=== PATIENT | female | born 1980 | race Caucasian/White ===

== ENCOUNTER 2017-08-03 15:20 | Emergency (ER) | payer SELFPAY ==
[~2017-08-03 15:20] MED LIST: CYMB30CA PO; DICL50 PO; HYDR50CA PO; PROP20TA3 PO
[2017-08-03 15:21] VITALS: BP 131/76; PULSE 79; RESP 16; TEMP 98; O2SAT 99
--- NOTE | 2017-08-03 15:41 | PD ---
HPI Chief Complaint: Skin Problem Time Seen by Provider: 15:26 Travel History International Travel<30 days: No Contact w/Intl Traveler<30days: No Traveled to known affect area: No History of Present Illness HPI 36-year-old female with painful lesion to the right posterior scalp with pain radiating along the right upper scalp to the forehead. Patient also has several small lesions on the forehead and upper nose which she thought were "pimples". Patient thought she may have been bitten by a spider. She has had low-grade fevers over the past several days, and increased stress. Patient denies headache, sore throat, or other respiratory symptoms. She denies nausea , vomiting, cough, shortness of breath, or other symptoms. Pain is 8 out of 10 and worse with palpation. She is allergic to wasp it has no medication allergies. PFSH Past Medical History Blood Disorders: No Anxiety: Yes Depression: Yes Cancer: No Cardiovascular Problems: Yes Diminished Hearing: No Endocrine: No Genitourinary: No Headaches: Yes Immune Disorder: No Musculoskeletal: Yes (CHRONIC BACK PAIN) Psychiatric: No Respiratory: No Immunizations Current: Yes Migraines: Yes : 3 Miscarriage: 2 Dilation and Curettage (D&C): Yes (X 1) Past Surgical History AICD: No Gynecologic Surgery: Yes (DNC ) Joint Replacement: No Pacemaker: No Tonsillectomy: Yes Other Surgery: Yes (T & A AT AGE 19 YRS.) Social History Alcohol Use: No Tobacco Use: Yes Substance Use: Yes (H/O IV DRUG USER ) Allergies-Medications (Allergen,Severity, Reaction): Uncoded Allergies: WASPS (Allergy, Severe, ANAPHALACTIC SHOCK, 11/19/11) Reported Meds & Prescriptions Reported Meds & Active Scripts Active Voltaren (Diclofenac Sodium) 50 Mg Tabec 50 Mg PO BID PRN Reported Propranolol (Propranolol HCl) 20 Mg Tab 20 Mg PO BID Hydroxyzine Pamoate 50 Mg Cap 50 Mg PO TID Cymbalta (Duloxetine HCl) 30 Mg Cap 60 Mg PO BID Review of Systems Except as stated in HPI: all other systems reviewed are Neg General / Constitutional: Positive: Fever, Chills (Low-grade) Eyes: No: Diploplia, Blurred Vision, Photophobia, Drainage, Redness, Foreign Body Sensation, Pain, Tearing, Blind Spots, Visual changes, Blindness HENT: Positive: Other (See history of present illness), No: Headaches, Vertigo , Lightheadedness, Sore Throat, Rhinitis, Rhinorrhea, Congestion, Nosebleed, Neck Stiffness, Neck Pain, Masses, Dental Difficulties, Earache Cardiovascular: No: Chest Pain or Discomfort Respiratory: No: Shortness of Breath Gastrointestinal: No: Nausea, Vomiting, Diarrhea, Abdominal Pain Genitourinary: No: Dysuria Musculoskeletal: No: Pain Skin: Positive Lesions (See history of present illness), No Rash Neurologic: No: Weakness Psychiatric: No: Depression Endocrine: No: Polydipsia Hematologic/Lymphatic: No: Easy Bruising Physical Exam Narrative GENERAL: Patient appears in mild distress. SKIN: Warm and dry. Normal color. Normal turgor. Patient has multiple small singular lesions suggestive of zoster. No signs of obvious cellulitis or abscess. HEAD: Atraumatic. Normocephalic. Patient is very tender with palpation along the right parietal and forehead region consistent with neuralgia. EYES: Pupils equal and round. No scleral icterus. No injection or drainage. Ocular motions are full without difficulty. ENT: No nasal bleeding or discharge. Mucous membranes pink and moist. Pharynx is clear. Airways patent. No oral lesions. TMs are clear. No sinus tenderness to palpation or percussion NECK: Trachea midline. Supple without significant lymphadenopathy. CARDIOVASCULAR: Regular rate and rhythm. RESPIRATORY: No accessory muscle use. Clear to auscultation. Breath sounds equal bilaterally. MUSCULOSKELETAL: Extremities without clubbing, cyanosis, or edema. No obvious deformities. NEUROLOGICAL: Awake and alert. No obvious cranial nerve deficits. Motor grossly within normal limits. Five out of 5 muscle strength in the arms and legs. Normal speech. PSYCHIATRIC: Appropriate mood and affect; insight and judgment normal. Data Data Last Documented VS Vital Signs Date Time Temp Pulse Resp B/P (MAP) Pulse Ox O2 Delivery O2 Flow Rate FiO2 08/03/17 15:21 98.0 79 16 131/76 (94) 99 MDM Medical Decision Making Medical Screen Exam Complete: Yes Emergency Medical Condition: Yes Differential Diagnosis Rash. Zoster. Insect bite Narrative Course I suspect shingles asked on the patient's history and physical Patient will be treated with acyclovir 200 mg 4 tablets 5 times daily for 7 days. Patient also given gabapentin 100 mg up to 3 times daily #30 Patient can take Tylenol as well. Work note is given. Patient to follow-up if symptoms are worsening as discussed Diagnosis Primary Impression: Shingles Qualified Codes: B02.9 - Zoster without complications Patient Instructions: Acyclovir (By mouth), Gabapentin (By mouth), General Instructions, Shingles (ED) Departure Forms: Work Release Enter return to work date: Aug 07, 2017 Additional Instructions: I suspect shingles asked on the patient's history and physical Patient will be treated with acyclovir 200 mg 4 tablets 5 times daily for 7 days. Patient also given gabapentin 100 mg up to 3 times daily #30 Patient can take Tylenol as well. Work note is given. Patient to follow-up if symptoms are worsening as discussed Med/Other Pt SpecificInfo: Prescription(s) given Disposition: 01 DISCHARGE HOME Condition: Stable Justin Rankin Aug 03, 2017 15:41
[2017-08-03] MEDS ORDERED: ACYC200C66 PO (15:42)
[2017-08-03] MEDS ORDERED: GABA100C4 PO (15:42)
== END 2017-08-03 15:57 | disposition home or self-care (01) ==
LOC: NEPK 15:20
DX: B02.9 Zoster without complications (principal); R50.9 Fever, unspecified; Z72.0 Tobacco use
CPT/HCPCS: 99283